=== PATIENT | male | born 1945 | race Caucasian/White ===

== ENCOUNTER 2017-02-25 17:08 | Emergency (ER) | payer OTHER ==
[~2017-02-25] VITALS: Ht 177.8 cm; Wt 78.9 kg
--- NOTE | 2017-02-25 17:24 | NUR ---
BIBRA FROM HOME FOR ALTERED MENTAL STATUS. PATIENT IS AAO2. APPEARS IN NO APPARENT DISTRESS. RESPIRATION EVEN AND UNLAORED. DENIES CHEST PAIN. SKIN IS WARM TO TOUCH-- TEMP 102. DENIES N/V. OTHER VSS. GOWNED PT AND PLACED ON TELE MONITOR. AWAITING FOR MD CAREY. ON HER WAY TO ED
[2017-02-25] MEDS ORDERED: ACETAMINOPHEN ES 500 MG TABLET ONE (17:47)
[2017-02-25] MEDS ORDERED: IBUPROFEN 600 MG TABLET PO ONE (17:48)
[2017-02-25] MEDS: IV NS 0.9% 1,000 ML BAG IV ONE (18:02)
[2017-02-25] MEDS: IBUPROFEN 600 MG TABLET PO ONE (18:02)
[2017-02-25] MEDS: ACETAMINOPHEN ES 500 MG TABLET PO ONE (18:02)
[2017-02-25 18:05] LABS: BASOPHILS # (AUTO) 0.2 /CMM (0.0-0.2); BASOPHILS % (AUTO) 3.6 % (0.0-2.0); EOSINOPHILS % (AUTO) 0.2 % (0.0-6.0); HEMATOCRIT 38 % (39-51); HEMOGLOBIN 12.6 g/dL (13.5-17.5); LYMPHOCYTES # (AUTO) 0.6 /CMM (0.8-4.8); MEAN CORPUSCULAR HEMOGLOBIN 30 PG (26.0-33.0); MEAN CORPUSCULAR HGB CONC 33 g/dl (31.0-36.0); MEAN CORPUSCULAR VOLUME 92 fL (80-96); MONOCYTES # (AUTO) 0.3 /CMM (0.1-1.30); NEUTROPHILS # (AUTO) 5.5 /CMM (1.8-8.9); NEUTROPHILS % (AUTO) 82.2 % (43.0-81.0); PLATELET COUNT (AUTO) 235 /CMM (150-450); RDW COEFFICIENT OF VARIATION 11.8 (11.5-15.0); RED BLOOD CELL COUNT(AUTO) 4.13 MIL/uL (4.5-6.0); WHITE BLOOD COUNT (AUTO) 6.6 K/uL (4.3-11.0)
[2017-02-25 18:16] LABS: CALCIUM, SERUM 8.4 mg/dL (8.5-10.1); CARBON DIOXIDE 30 mmol/L (21-32); CHLORIDE 101 mmol/L (98-107); CREATININE 1.1 mg/dL (0.6-1.3); GLUCOSE 110 mg/dL (74-106); SODIUM SERUM 137 mmol/L (136-145); UREA NITROGEN, BLOOD 13 mg/dL (7-18)
[2017-02-25 18:20] LABS: INR 1.12 (0.87-1.13); PROTHROMBIN TIME 11.8 SECS (9.5-12.7)
[2017-02-25 18:22] LABS: ALANINE AMINOTRANSFERASE 47 U/L (12-78); ALBUMIN 3.4 g/dL (3.4-5.0); ALKALINE PHOSPHATASE 59 U/L (46-116); ASPARTATE AMINOTRANSFERASE 20 U/L (15-37); BILIRUBIN,DIRECT 0.1 mg/dL (0.0-0.2); BILIRUBIN,TOTAL 0.6 mg/dL (0.2-1.0)
[2017-02-25 18:24] LABS: TROPONIN I < 0.017 ng/mL (0.00-0.056)
--- NOTE | 2017-02-25 18:49 | NUR ---
URINE SAMPLE OBTAINED AND SENT TO LAB
[2017-02-25 18:52] LABS: APPEARANCE,URINE Cloudy (CLEAR); BILIRUBIN,URINE Negative (NEGATIVE); BLOOD, URINE Moderate Ery/uL (NEGATIVE); COLOR,URINE Yellow (YELLOW); KETONES,URINE Negative (NEGATIVE); LEUKOCYTE ESTERASE ,URINE Large (NEGATIVE); NITRITE, URINE Positive (NEGATIVE); PH,URINE 7.5 (5.0-8.0); PROTEIN,URINE 100 mg/dl (NEGATIVE); UGLUCOSE Negative (NEGATIVE); UROBILINOGEN,URINE 0.2 EU/dL (0.2)
[2017-02-25 19:02] LABS: BACTERIA,URINE Many /HPF (None Seen); SQUAMOUS EPITHELIAL CELL,UR Rare /HPF (None Seen); WBC,URINE 21-50 /HPF (0-3)
--- NOTE | 2017-02-25 19:19 | NUR ---
CALLED [facility] AND SPOKE WITH MEKHI. CASE DISPATCHED TO [facility] PHYSICIAN AND EXPECTING CALL BACK
--- NOTE | 2017-02-25 19:29 | NUR ---
CONTINUITY OF CARE TRANSFERRED TO NURSE ED
[2017-02-25] MEDS: CEFTRIAXONE 1GM BAG (ER ONLY) 1 GM/50 ML PIGGYBACK IV ONE (19:37)
[2017-02-25] MEDS ORDERED: CEFTRIAXONE 1GM BAG (ER ONLY) 50 ML IV ONE (19:37)
--- NOTE | 2017-02-25 20:18 | NUR ---
SPOKE TO [facility] TRANSFER INFO RECEIVED. PT WILL BE GOING TO [facility], ACCEPTING MD CEDENO, PHONE NUMBER FOR REPORT . WILL CALL FOR REPORT.
[2017-02-25] MEDS ORDERED: MORPHINE SULFATE INJ 4 MG/ML DISP.SYRIN ONE (20:39)
[2017-02-25] MEDS: MORPHINE SULFATE INJ 2 MG/ML DISP.SYRIN IV ONE (20:40)
--- NOTE | 2017-02-25 20:46 | NUR ---
REPORT CALLED TO [facility]. AWAITING TRANSPORT.
--- NOTE | 2017-02-25 21:09 | NUR ---
TOTAL PT CARE DONE. AWAITING [facility] TRANSPORT.
[2017-02-25 21:20] VITALS: BP 162/95
--- NOTE | 2017-02-25 21:34 | NUR ---
REPORT GIVEN TO [facility].
== END 2017-02-25 21:35 | disposition short-term general hospital (02) ==
LOC: ER 17:10
DX: N12 Tubulo-interstitial nephritis, not specified as acute or chronic (principal); F02.80 Dementia in other diseases classified elsewhere, unspecified severity, without behavioral disturbance, psychotic disturbance, mood disturbance, and anxiety; G30.9 Alzheimer's disease, unspecified
CPT/HCPCS: 36415; 71010-TC; 80048-TC; 80076-TC; 81000-TC; 83605-TC; 84484-TC; 85025-TC; 85730-TC; 87040-TC; 87086-TC; 87186-TC; A4606; J0696; J2270; J7030; Z7610

== ENCOUNTER 2020-03-29 07:50 | Emergency (ER) | payer OTHER ==
[~2020-03-29] VITALS: Ht 180.3 cm; Wt 81.2 kg
--- NOTE | 2020-03-29 07:57 | NUR ---
ER BED 2 BROUGHT IN BY RA [id number]. UNWITNESSED GROUND LEVEL FALL FROM ASSISTED LIVION FACILITY. NO OBVIOUS INJURIES NOTED. NO S/S OF PAIN/DISCOMFORT. CONNECTED TO MONITOR. AWAITING FOR MD CAREY.
--- NOTE | 2020-03-29 08:01 | NUR ---
SEEN BY MD DR DAILY BY BEDSIDE. SEEN PT
--- NOTE | 2020-03-29 08:15 | NUR ---
ASSISTED LIVING CALLED [facility] ASSIST[facility] LIVING ON [facility]. INFORMED THAT PT WAS EVALUATED BY AND WILL BE SENT BACK TO FACILITY. [phone]
--- NOTE | 2020-03-29 08:20 | NUR ---
CALLED [facility] FOR AMBULANCE TRANSPORT TO ASSISTED LIVING. WILL CALL BACK WITH
--- NOTE | 2020-03-29 08:51 | NUR ---
[facility] GAVE AMBULANCE ETA OF 0945.
--- NOTE | 2020-03-29 09:03 | NUR ---
PENDING D/C AWAITING FOR AMBULANCE DIRECTOR OF ESTATE. PT IN STABLE CONDITION. NO COMPLAINTS AND/OR S/S OF PAIN/DISCOMFORT AT THIS TIME.
--- NOTE | 2020-03-29 09:47 | NUR ---
D/C Patient discharged to assisted living in stable condition. Written and verbal after care instructions given to emt pt confused pt stable. report given at asssited living
[2020-03-29 09:50] VITALS: BP 169/93
== END 2020-03-29 09:52 ==
LOC: ER 07:54
DX: G30.9 Alzheimer's disease, unspecified (principal); F02.80 Dementia in other diseases classified elsewhere, unspecified severity, without behavioral disturbance, psychotic disturbance, mood disturbance, and anxiety; R94.31 Abnormal electrocardiogram [ECG] [EKG]; W18.39XA Other fall on same level, initial encounter; Y93.89 Activity, other specified; Y92.89 Other specified places as the place of occurrence of the external cause; Y99.8 Other external cause status